=== PATIENT | female | born 1950 | race Caucasian/White ===

== ENCOUNTER 2018-08-28 23:09 | Inpatient (IN) | payer SELFPAY ==
[~2018-08-28] VITALS: Ht 162.6 cm; Wt 72.6 kg
[2018-08-28] MEDS ORDERED: ONDANSETRON HCL 4MG/2ML INJ IV STA (23:40)
[2018-08-29 00:33] LABS: EOSINOPHILS % 1.8 % (0.0-5.0); HEMATOCRIT. 25.7 % (36.0-48.0); HEMOGLOBIN. 7.8 g/dL (12.0-16.0); LYMPHOCYTES % 23.3 % (20.0-50.0); MEAN CORPUSCULAR HEMOGLOBIN 23.2 pg (28.0-32.0); MEAN CORPUSCULAR VOLUME 76.1 fL (81.0-99.0); MEAN PLATELET VOLUME 8.5 fl (7.4-10.4); NEUTROPHILS % 68.9 % (40.0-76.0); PLATELET 196 x1000/uL (130-400); RED BLOOD CELL COUNT 3.38 mill/uL (4.2-5.4); RED CELL DISTRIBUTION WIDTH 17.4 % (11.6-14.6)
[2018-08-29 00:40] LABS: CHLORIDE 108 mEq/L (98-107)
[2018-08-29] MEDS ORDERED: VANCOMYCIN 1 G PREMIX 200 ML IV SCH (01:15)
[2018-08-29] MEDS ORDERED: SODIUM CHLORIDE 0.9% 1000ML BAG (SEPSIS BOLUS) IV ONE (01:15)
[2018-08-29] MEDS ORDERED: PIPERACILLIN/TAZOBACTAM 3.375GM/50ML PREMIX IV SCH (01:15)
[2018-08-29 05:10] LABS: CLARITY URINE CLOUDY (CLEAR); COLOR URINE YELLOW (YELLOW); KETONES URINE TRACE (NEGATIVE); LEUKOCYTE ESTERASE URINE NEGATIVE (NEGATIVE); NITRITE URINE NEGATIVE (NEGATIVE); OCCULT BLOOD URINE NEGATIVE (NEGATIVE); PH URINE 5.5 (4.5-8.0); PROTEIN URINE NEGATIVE (NEGATIVE); SPECIFIC GRAVITY URINE 1.018 (1.005-1.030); UROBILINOGEN URINE 0.2 E.U./dL (0.2-1.0)
[2018-08-29] MEDS ORDERED: LORAZEPAM 2MG/ML CPJ IV PRN (10:45)
[2018-08-29] MEDS ORDERED: HYDROCODONE/ACETAMINOPHEN 5/325MG TABLET PO PRN (10:45)
[2018-08-29] MEDS ORDERED: ACETAMINOPHEN 325MG TABLET PO NR (10:45)
[2018-08-29] MEDS ORDERED: CLONIDINE 0.1MG TABLET PO PRN (10:45)
[2018-08-29] MEDS ORDERED: ONDANSETRON HCL 4MG/2ML INJ IV PRN (10:45)
[2018-08-29] MEDS ORDERED: MAGNESIUM/ALUMINUM HYDROXIDE/SIMETHICONE 30ML UDC PO PRN (10:45)
[2018-08-29] MEDS ORDERED: ENOXAPARIN 40MG/0.4ML SYR SUBCUT SCH (11:28)
[2018-08-29 15:05] LABS: CANNABINOID URINE SCREEN PRESUMTIVE POSITIVE (NEGATIVE)
[2018-08-29 15:06] LABS: *AMPHETAMINES SCREEN URINE NEGATIVE (NEGATIVE); *BARBITURATES SCREEN URINE NEGATIVE (NEGATIVE); *BENZODIAZEPINES SCREEN URINE NEGATIVE (NEGATIVE); *COCAINE SCREEN URINE NEGATIVE (NEGATIVE); METHADONE URINE SCREEN NEGATIVE (NEGATIVE)
[2018-08-29 15:07] LABS: OPIATES URINE SCREEN NEGATIVE (NEGATIVE); PHENCYCLIDINE URINE SCREEN NEGATIVE (NEGATIVE)
[2018-08-29 17:18] LABS: CREATINE KINASE 162 IU/L (26-192)
[2018-08-29] MEDS ORDERED: DEXTROSE 50% WATER 50ML SYRINGE IV PRN (18:15)
[2018-08-29] MEDS: INSULIN LISPRO 100 UNITS/ML SUBCUT SCH ×2 (21:00→21:29)
[2018-08-29] MEDS: BLOOD SUGAR DIAGNOSTIC STRIP TEST SCH (21:30)
[2018-08-29 22:40] VITALS: BP 150/63
[2018-08-30] VITALS: BP 148/72
[2018-08-30 00:21] LABS: CREATINE KINASE 151 IU/L (26-192)
[2018-08-30 00:22] LABS: CREATINE KINASE MB FRACTION 1.4 ng/mL (0.5-3.6)
[2018-08-30 04:00] VITALS: BP 146/76
[2018-08-30 06:36] LABS: EOSINOPHILS % 3.5 % (0.0-5.0); HEMATOCRIT. 24.8 % (36.0-48.0); HEMOGLOBIN. 7.8 g/dL (12.0-16.0); LYMPHOCYTES % 22.1 % (20.0-50.0); MEAN CORPUSCULAR HEMOGLOBIN 23.7 pg (28.0-32.0); MEAN CORPUSCULAR VOLUME 75.1 fL (81.0-99.0); MEAN PLATELET VOLUME 8.6 fl (7.4-10.4); MONOCYTES % 5.8 % (2.0-8.0); NEUTROPHILS % 67.6 % (40.0-76.0); PLATELET 171 x1000/uL (130-400); RED BLOOD CELL COUNT 3.31 mill/uL (4.2-5.4); RED CELL DISTRIBUTION WIDTH 17.4 % (11.6-14.6)
[2018-08-30] MEDS: INSULIN LISPRO 100 UNITS/ML SUBCUT SCH ×2 (06:41→12:02)
[2018-08-30] MEDS: BLOOD SUGAR DIAGNOSTIC STRIP TEST SCH ×2 (06:41→11:47)
[2018-08-30 06:42] LABS: CHLORIDE 109 mEq/L (98-107)
[2018-08-30 06:50] LABS: PHOSPHORUS 3.4 mg/dL (2.5-4.9)
[2018-08-30 08:00] VITALS: BP 138/51
[2018-08-30] MEDS ORDERED: ASPIRIN 81MG EC TABLET PO SCH (09:00)
[2018-08-30 13:05] VITALS: BP 117/48
== END 2018-08-30 17:05 | disposition home or self-care (01) | DRG 203 ==
LOC: ER 23:09 → 8WST 08-29 01:19 → EDBEDREQ 08-29 01:22 → EDBEDREQTM 08-29 01:22 → EDBEDREQSVC 08-29 01:22 → EDBEDREQTM 08-29 20:40 → ENRESERV 08-29 21:22
PROVIDERS: ADMIT Internal Medicine Nephrology; ATTEND Internal Medicine Nephrology
DX: R07.89 Other chest pain (principal); E44.1 Mild protein-calorie malnutrition; D50.9 Iron deficiency anemia, unspecified; E11.9 Type 2 diabetes mellitus without complications; E78.00 Pure hypercholesterolemia, unspecified; I10 Essential (primary) hypertension; Z86.73 Personal history of transient ischemic attack (TIA), and cerebral infarction without residual deficits; Z68.27 Body mass index [BMI] 27.0-27.9, adult
CPT/HCPCS: 36415; 71045; 80048; 80305; 82550; 82553; 82962; 83605; 83735; 83880; 84100; 84484; 93005; 93306; 96365; 96366; 96368; 96375; 99285; G0378; J1815; J2405; J2543; J3370

== ENCOUNTER 2018-09-25 21:16 | Inpatient (IN) | payer OTHER, MEDICAID ==
[~2018-09-25] VITALS: Ht 157.5 cm; Wt 69.0 kg
[2018-09-26] MEDS ORDERED: SODIUM CHLORIDE 0.9% 1,000 ML IV ONE (00:04)
[2018-09-26 00:18] LABS: BASOPHILS % 0.8 % (0.0-2.0); EOSINOPHILS % 0.6 % (0.0-5.0); HEMATOCRIT. 32.6 % (36.0-48.0); HEMOGLOBIN. 10.3 g/dL (12.0-16.0); LYMPHOCYTES % 17.7 % (20.0-50.0); MEAN CORPUSCULAR HEMOGLOBIN 25.2 pg (28.0-32.0); MEAN CORPUSCULAR VOLUME 79.6 fL (81.0-99.0); MEAN PLATELET VOLUME 8.6 fl (7.4-10.4); MONOCYTES % 4.6 % (2.0-8.0); NEUTROPHILS % 76.3 % (40.0-76.0); PLATELET 197 x1000/uL (130-400)
[2018-09-26 00:26] LABS: CLARITY URINE CLEAR (CLEAR); COLOR URINE YELLOW (YELLOW); KETONES URINE NEGATIVE (NEGATIVE); LEUKOCYTE ESTERASE URINE NEGATIVE (NEGATIVE); NITRITE URINE NEGATIVE (NEGATIVE); OCCULT BLOOD URINE NEGATIVE (NEGATIVE); PROTEIN URINE NEGATIVE (NEGATIVE); SPECIFIC GRAVITY URINE 1.012 (1.005-1.030); UROBILINOGEN URINE 0.2 E.U./dL (0.2-1.0)
[2018-09-26 00:49] LABS: CHLORIDE 105 mEq/L (98-107)
[2018-09-26 01:04] LABS: INR 1.1; PROTHROMBIN TIME 11.1 sec (9.6-11.0)
[2018-09-26] MEDS ORDERED: CEFTRIAXONE 1 G PREMIX 50 ML IV ONE (01:15)
[2018-09-26] MEDS ORDERED: SODIUM CHLORIDE 0.9% 1000ML BAG (SEPSIS BOLUS) IV ONE (01:15)
[2018-09-26 01:36] LABS: PLATELET ESTIMATE NORMAL
[2018-09-26] MEDS ORDERED: ONDANSETRON HCL 4MG/2ML INJ IV PRN (07:45)
[2018-09-26] MEDS ORDERED: LORAZEPAM 2MG/ML CPJ IV PRN (07:45)
[2018-09-26 08:00] VITALS: BP 181/73
[2018-09-26] MEDS: THIAMINE HCL 100MG TABLET PO SCH (11:36)
[2018-09-26] MEDS: HYDROCODONE/ACETAMINOPHEN 5/325MG TABLET PO PRN ×2 (11:36→20:46)
[2018-09-26] MEDS: ASPIRIN 81MG EC TABLET PO SCH (11:36)
[2018-09-26] MEDS: ENOXAPARIN 40MG/0.4ML SYR SUBCUT SCH (11:37)
[2018-09-26 12:00] VITALS: BP 167/58
[2018-09-26 13:53] VITALS: BP 167/87
[2018-09-26 16:00] VITALS: BP 142/65
[2018-09-26 17:28] LABS: CREATINE KINASE 67 IU/L (26-192)
[2018-09-26 17:29] LABS: CREATINE KINASE MB FRACTION < 1.0 ng/mL (0.5-3.6)
[2018-09-26] MEDS: METFORMIN HCL 500MG TABLET PO SCH (17:39)
[2018-09-26 20:00] VITALS: BP 140/70
[2018-09-26] MEDS: AMLODIPINE 5MG TABLET PO SCH (20:47)
[2018-09-26 22:45] LABS: *BARBITURATES SCREEN URINE NEGATIVE (NEGATIVE); *BENZODIAZEPINES SCREEN URINE NEGATIVE (NEGATIVE); *COCAINE SCREEN URINE NEGATIVE (NEGATIVE); METHADONE URINE SCREEN NEGATIVE (NEGATIVE)
[2018-09-26 22:47] LABS: *AMPHETAMINES SCREEN URINE NEGATIVE (NEGATIVE); CANNABINOID URINE SCREEN NEGATIVE (NEGATIVE); OPIATES URINE SCREEN PRESUMTIVE POSITIVE (NEGATIVE); PHENCYCLIDINE URINE SCREEN NEGATIVE (NEGATIVE)
[2018-09-26 23:40] LABS: CREATINE KINASE 92 IU/L (26-192)
[2018-09-26 23:42] LABS: CREATINE KINASE MB FRACTION 1.3 ng/mL (0.5-3.6)
[2018-09-27] VITALS: BP 114/50
[2018-09-27 04:00] VITALS: BP 125/63
[2018-09-27 07:06] LABS: BASOPHILS % 1.3 % (0.0-2.0); HEMATOCRIT. 33.5 % (36.0-48.0); HEMOGLOBIN. 10.5 g/dL (12.0-16.0); MEAN CORPUSCULAR HEMOGLOBIN 24.7 pg (28.0-32.0); MEAN CORPUSCULAR VOLUME 79.3 fL (81.0-99.0); MEAN PLATELET VOLUME 8.7 fl (7.4-10.4); MONOCYTES % 5.3 % (2.0-8.0); NEUTROPHILS % 60.4 % (40.0-76.0); PLATELET 215 x1000/uL (130-400); RED BLOOD CELL COUNT 4.23 mill/uL (4.2-5.4); RED CELL DISTRIBUTION WIDTH 22.9 % (11.6-14.6)
[2018-09-27 07:19] LABS: CHLORIDE 108 mEq/L (98-107)
[2018-09-27 07:30] LABS: PHOSPHORUS 4.2 mg/dL (2.5-4.9)
[2018-09-27 08:00] VITALS: BP 136/74
[2018-09-27] MEDS: METFORMIN HCL 500MG TABLET PO SCH (08:42)
[2018-09-27] MEDS: THIAMINE HCL 100MG TABLET PO SCH (08:42)
[2018-09-27] MEDS: AMLODIPINE 5MG TABLET PO SCH (08:42)
[2018-09-27] MEDS: ASPIRIN 81MG EC TABLET PO SCH (08:42)
[2018-09-27] MEDS: HYDROCODONE/ACETAMINOPHEN 5/325MG TABLET PO PRN (08:43)
[2018-09-27] MEDS: ENOXAPARIN 40MG/0.4ML SYR SUBCUT SCH (08:43)
[2018-09-27 12:00] VITALS: BP 147/64
[2018-09-27 13:11] VITALS: BP 147/64
== END 2018-09-27 13:51 | disposition home or self-care (01) | DRG 48 ==
LOC: ER 21:16 → ENRESERV 09-26 07:35 → SUPCPDRO 09-26 07:43 → 5WST 09-26 08:46
PROVIDERS: ADMIT Internal Medicine Nephrology; ATTEND Internal Medicine Nephrology
DX: G90.8 Other disorders of autonomic nervous system (principal); E44.1 Mild protein-calorie malnutrition; E11.9 Type 2 diabetes mellitus without complications; E78.00 Pure hypercholesterolemia, unspecified; I10 Essential (primary) hypertension; Z68.27 Body mass index [BMI] 27.0-27.9, adult; Z91.14 Patient's other noncompliance with medication regimen
CPT/HCPCS: 36415; 71045; 80048; 80305; 82550; 82553; 82962; 83605; 83735; 83880; 84100; 84145; 84443; 84484; 93005; 93306; 96361; 96365; 96375; 99291; J0696; J1650; J2405; J7030